=== PATIENT | female | born 1965 | race Asian ===

== ENCOUNTER 2016-11-18 10:22 | Day surgery (SDC) | payer BC ==
[2016-11-18] VITALS (25 sets, daily range): BP systolic 109–143; BP diastolic 50–91; PULSE 61–110; RESP 11–32; Ht 170.2 cm; Wt 74.9 kg
[~2016-11-18] VITALS: Ht 170.2 cm; Wt 74.9 kg
[~2016-11-18 10:22] MED LIST: CEFAZOLIN 1 GM INJ ONE
[2016-11-18 11:34] LABS: ADD SCAN DIFF NO
[2016-11-18 11:58] LABS: ALBUMIN 4.5 g/dl (3.3-4.9)
[2016-11-18] MEDS ORDERED: HYDROmorphONE (0.2 MG/ML) 10ML SYG IV PRN ×3 (12:00)
[2016-11-18] MEDS ORDERED: ROCURONIUM 50 MG INJ ONE (12:00)
[2016-11-18] MEDS ORDERED: EPHEDrine SULFATE 50 MG/5 ML SYG IV PRN (12:00)
[2016-11-18] MEDS ORDERED: LIDOCAINE 2% (SDV) 5 ML INJ ONE (12:00)
[2016-11-18] MEDS ORDERED: LABETALOL HCL 20MG INJ IV PRN (12:00)
[2016-11-18] MEDS ORDERED: MIDAZOLAM 1 MG/ML 2 ML INJ IV PRN (12:00)
[2016-11-18] MEDS ORDERED: PROPOFOL 20 ML ONE (12:00)
[2016-11-18] MEDS ORDERED: FENTAnyl 50 MCG/ML VIAL ONE (12:00)
[2016-11-18] MEDS ORDERED: ATROPINE 1 MG/10 ML SYRINGE IV PRN (12:00)
[2016-11-18] MEDS ORDERED: hydrALAzine 20 MG INJ IV PRN (12:00)
[2016-11-18] MEDS ORDERED: MEPERIDINE 25 MG INJ IV PRN (12:00)
[2016-11-18] MEDS ORDERED: FENTAnyl 50 MCG/ML VIAL IV PRN ×2 (12:00)
[2016-11-18] MEDS ORDERED: NEOSTIGMINE 3 MG/3 ML SYRINGE ONE (12:00)
[2016-11-18] MEDS ORDERED: DIPHENHYDRAMINE 50 MG INJ IV PRN (12:00)
[2016-11-18] MEDS ORDERED: morphine (1 MG/ML) 10ML SYRINGE IV PRN ×3 (12:00)
[2016-11-18] MEDS ORDERED: OXYCODONE/ACETAMINOPHEN (5/325) TAB PO PRN ×2 (12:00)
[2016-11-18] MEDS ORDERED: GLYCOPYRROLATE 0.4 MG INJ ONE (12:00)
[2016-11-18] MEDS ORDERED: ONDANSETRON 4 MG INJ IV PRN ×2 (12:00→13:30)
[2016-11-18 12:01] LABS: ALBUMIN/GLOBULIN RATIO 1.18; BILIRUBIN,INDIRECT 0.6 mg/dl (0-1.1); BILIRUBIN,TOTAL 0.6 mg/dl (0.2-1.3); TOTAL PROTEIN 8.3 g/dl (6.1-8.1)
[2016-11-18] MEDS ORDERED: MIDAZOLAM 1 MG/ML 2 ML INJ ONE (12:01)
[2016-11-18] MEDS ORDERED: DEXAMETHASONE 4 MG/ML 1 ML INJ ONE (12:01)
[2016-11-18] MEDS ORDERED: ONDANSETRON 4 MG INJ ONE (12:01)
[2016-11-18 12:09] LABS: INR 0.94; PROTIME 12.6 Sec (12.2-14.2)
--- NOTE | 2016-11-18 12:09 | RADRPT ---
PROCEDURE: XR Chest. CLINICAL INDICATION: Preoperative, breast cancer TECHNIQUE: Single frontal view of the chest was obtained COMPARISON: None FINDINGS: The heart and mediastinum are within normal limits. The lungs are clear. There is no pleural effusion or pneumothorax. RPTAT: AA IMPRESSION: No acute disease. .Ludwig Kirkpatrick MD, MD Date Time Electronically viewed and signed by .Ludwig Kirkpatrick MD, on 11/18/2016 12:09 .S/
[2016-11-18 12:18] LABS: CALCIUM 9.4 mg/dl (8.4-10.2); CREATININE 0.6 mg/dl (0.44-1.00); POTASSIUM 4.2 mmol/L (3.5-5.1)
[2016-11-18 13:11] LABS: BASOPHILS % 0.9 % (0.0-2.0); EOSINOPHILS % 1.1 % (0.0-7.0); HEMATOCRIT 40.3 % (37.0-47.0); HEMOGLOBIN 12.5 g/dl (12.0-16.0); LYMPHOCYTES # 1.3 10^3/ul (0.8-2.9); LYMPHOCYTES % 37.4 % (15.0-51.0); MEAN CORPUSCULAR VOLUME 64.6 fl (82.0-101.0); MEAN PLATELET VOLUME 10.2 fl (7.4-10.4); MONOCYTE # 0.3 10^3/ul (0.3-0.9); MONOCYTES % 9.2 % (0.0-11.0); NEUTROPHIL # 1.8 10^3/ul (1.6-7.5); NEUTROPHILS % 51.4 % (39.0-77.0); PLATELET COUNT 253 10^3/UL (140-415); RED BLOOD COUNT 6.24 10^6/ul (4.20-5.40); RED CELL DISTRIBUTION WIDTH 16.7 % (11.5-14.5); WHITE BLOOD COUNT 3.5 10^3/ul (4.8-10.8)
[2016-11-18] MEDS ORDERED: ISOSULFAN BLUE 1% 5 ML INJ SC ONE (13:21)
[2016-11-18] MEDS ORDERED: morphine 2 MG INJ IV PRN (13:30)
[2016-11-18] MEDS ORDERED: ACETAMINOPHEN 1000MG/100ML IV 100 ML IVPB PRN (13:30)
[2016-11-18] MEDS ORDERED: EPHEDrine SULFATE 50 MG/5 ML SYG ONE (13:48)
[2016-11-18] MEDS ORDERED: CEFAZOLIN 2 GM/50 ML (PMX) 50 ML IVPB SCH (14:00)
[2016-11-18] MEDS ORDERED: SOD CHLORIDE 0.9% 1,000 ML IV SCH (14:00)
--- NOTE | 2016-11-18 15:24 | OPR ---
DATE OF OPERATION: 11/18/2016 PREOPERATIVE DIAGNOSIS: Invasive cancer, left breast. POSTOPERATIVE DIAGNOSIS: Invasive cancer, left breast. PROCEDURE PERFORMED: Left partial mastectomy and axillary dissection utilizing sentinel lymph node technique. SURGEON: Scar Lopez MD APPAREL RENTAL CLERK: Gregory Ledezma MD ANESTHESIA: General. ANESTHESIOLOGIST: Temo Lopez MD INDICATIONS FOR PROCEDURE: The patient is a 51-year-old female who presented with a large mass in h er left breast. Workup including biopsy revealed approximately a 4 cm moderately-differentiated victor manuel or. She underwent testing, she was found to be triple negative, and discussing the case with the [facility] medical oncologist, Dr. Giancarlo Bacon, decision was made, recommend that the patient proc eed directly with surgery. The patient requested attempt at breast conservation understanding that she may need a completion mastectomy. She consented and was scheduled for surgery. DESCRIPTION OF PROCEDURE: The patient was brought to the operating theater, placed under general en dotracheal tube anesthesia. The left breast and axillary region was prepped and draped in the usual sterile fashion. Approximately 4 mL of 1% Lymphazurin blue dye was then injected peritumorally and the breast was gently massaged for approximately 12 minutes. At this point, a 3 to 4 cm incision w as made in the left axillary hairline. Subcutaneous tissue was dissected with cautery down through the clavipectoral fascia. A dye-stained lymphatic was identified and traced to an obvious sentinel node, which was enlarged. There were some additional enlarged nodes here. Based on the size of the primary tumor and the findings in the axilla, decision was made to proceed with axillary dissection . With blunt dissection along the chest wall, the long thoracic nerve was identified and kept out o f harm's way. More superiorly, the axillary vein and thoracodorsal neurovascular bundles were ident ified and kept out of harm's way. Significant level I and some level II lymph nodes were then resec stephani using the LigaSure device. Specimen was removed. Intraoperative analysis of the sentinel node was performed by attending pathologist, Dr. Gunter, and it was negative on cytology for evidence o f metastasis. Therefore, Dr. Lopez made the decision not to take any additional nodes. The sentine l node and the resected axillary nodes were sent for permanent pathologic analysis. The wound was i rrigated. Minimal bleeding was controlled with cautery and a #10 flat Ildefonso-Cueto drain was then brought through the left mid axillary line, cut to size and laid within the axilla. It was secured in place with a 2-0 nylon suture in a standard fashion. The skin was then reapproximated with 4-0 V icryl suture in subcuticular fashion. Attention was then directed to performing a partial mastectomy. Palpable mass in the upper outer qu adrant of the left breast was identified. A long curvilinear incision was made directly over it wit h 15 blade scalpel. Subcutaneous tissue was then dissected with cautery. Skin edges were elevated with skin hooks and wide circumferential dissection of the tissue associated with the mass took plac e using cautery all the way down to the pectoralis major fascia, taking great care to ensure adequat e margin. Specimen was then elevated, transected, oriented, and sent for permanent pathologic lisbeth sis. The wound was irrigated. Minimal bleeding was controlled with cautery, and the skin was then reapproximated with 4-0 Vicryl suture in subcuticular fashion. Dermabond was then applied to both i ncisions. The patient tolerated the procedure well. The estimated blood loss was 30 mL. There wer e no complications. The patient was transported in stable condition to the recovery room where a ci rcumferential compression dressing was applied. Dictated By: SCAR NAIK/[place] Conf#: [id number] DID#: [id number]
[2016-11-18] MEDS: D5W-0.45 NACL + KCL 20 MEQ 1,000 ML IV SCH ×2 (17:07→23:00)
--- NOTE | 2016-11-18 17:40 | RADRPT ---
Vent Rate: 73 bpm RR Interval: 0 msec FL Interval: 138 msec QRS Duration: 84 msec QT Interval: 402 msec QTC Interval: 442 msec P-R-T [place]: 19 - 68 - 15 degrees Normal sinus rhythm Normal ECG Electronically Signed By: Keanu Colon [id number]
--- NOTE | 2016-11-18 21:46 | HP ---
DATE OF ADMISSION: 11/18/2016 CHIEF COMPLAINT AND HISTORY OF PRESENT ILLNESS: The patient is a 51-year-old female who was seen by Dr. Lopez as an outpatient. The patient was noted to have a left breast mass. Subsequently she un derwent biopsy which revealed moderately differentiated tumor which was triple negative. The patien t was seen by Dr. Bacon as an outpatient from oncology standpoint, and decision was made that t he patient proceed directly with surgery. The patient underwent left partial mastectomy and axillar y dissection. The patient did have significant postoperative pain and is being admitted for further evaluation and management. The patient denied any recent history of headache, dizziness, syncope. No history of fever or chills. No history of nausea, vomiting, diarrhea. No history of dysuria, h ematuria. No history of leg edema. No history of hypertension, diabetes or coronary artery disease . No history of CVA in the past. Rest of the review of systems unremarkable. PAST MEDICAL HISTORY: As stated above. ALLERGIES: NONE. PAST SURGICAL HISTORY: The patient is status post . SOCIAL HISTORY: No smoking, no alcohol. FAMILY HISTORY: Noncontributory. PHYSICAL EXAMINATION: GENERAL: The patient is conscious, awake, alert. VITAL SIGNS: Temperature 97.6, pulse 79, respirations 18, blood pressure 118/56, O2 saturation 100% on 2 L nasal cannula. HEENT: No eye discharge, redness. Extraocular movement intact. Oropharynx clear. NECK: Supple. No mass, no thyromegaly. CHEST: Fairly clear. CARDIOVASCULAR: S1, S2 normal. No murmur. ABDOMEN: Soft, nondistended, nontender. Bowel sounds present. EXTREMITIES: No leg edema. NEUROLOGIC: The patient is awake, alert with no gross focal deficit. Detailed neurological examina tion was deferred due to postoperative state. LABORATORY DATA: WBC 3.5, hemoglobin 12.5, platelets 253. Sodium 144, potassium 4.2, BUN 11, creat inine 0.6, glucose 105. Liver enzymes normal. IMPRESSION: Left breast invasive cancer, status post partial mastectomy and axillary dissection. PLAN: The patient admitted on medical floor. The patient will be started on clear liquid diet, whi ch will be advanced as tolerated. The patient will have IV Tylenol, Percocet and IV morphine for pa in control. Will have SCD for DVT prophylaxis and Zofran for nausea, vomiting. The patient ____ fl uids. Will continue to follow her from medical standpoint. Dictated By: CHINO BARBER/[place] Conf#: [id number] DID#: [id number]
[2016-11-19] MEDS: D5W-0.45 NACL + KCL 20 MEQ 1,000 ML IV SCH (03:22)
[2016-11-19 04:00] VITALS: BP 102/58; PULSE 62; RESP 18
[2016-11-19 05:00] VITALS: BP 102/58; RESP 18
[2016-11-19 07:00] VITALS: BP 107/63; RESP 18
[2016-11-19] MEDS ORDERED: HYDR-906 PO (11:43)
--- NOTE | 2016-11-19 12:24 | PN ---
DATE: 11/19/2016 Postop day #1 status post partial mastectomy with axillary dissection, left breast for cancer. SUBJECTIVE: Feels okay. No specific complaint. OBJECTIVE: GENERAL: Awake and oriented x3. Has tolerated a diet, has walked around. VITAL SIGNS: Temperature 98.4, heart rate 63, respirations 18, blood pressure 107/63, saturation 99 % on room air. BREASTS: Dressing is intact. Ildefonso-Cueto has drained 40 mL serosanguineous fluid in the past 24 hours. ASSESSMENT AND PLAN: Status post partial mastectomy with axillary dissection, left breast for cance r. The patient is stable. Therefore, she can go home today, to be followed by Dr. Lopez in the off ice. The patient was instructed to remove the compressive Jozef bandage around the chest wall on ay. Also was taught by nurse and by me how to take care of the Ildefonso-Cueto drain, how to empty it and how to measure it. The patient to call Dr. Lopez' office today and make an appointment for leeroy schaefer. Dictated By: BJ NASH MD PS/NTS Conf#: [id number] DID#: [id number]
--- NOTE | 2016-11-21 06:45 | DS ---
DATE OF ADMISSION: 11/18/2016 DATE OF DISCHARGE: 11/19/2016 FINAL DIAGNOSES: Invasive cancer of the left breast status post partial mastectomy and axillary dis section. HOSPITAL COURSE: The patient is a 51-year-old female who was noted to have a left breast mass. Sub sequent biopsy revealed moderately differentiated tumor. The patient was also seen by Dr. Josh bass as an outpatient in oncology consultation, and decision was made to proceed directly to surgery, a nd the patient was brought to the hospital and underwent left partial mastectomy with axillary disse ction. The patient experienced significant postoperative pain and was admitted for further evaluati on and management. The patient was given IV Tylenol and morphine for pain and Zofran p.r.n. for jake sea. The patient was given intraoperative antibiotics and IV fluids. The patient's condition impro wing, and the patient was discharged home. CONDITION ON DISCHARGE: Hemodynamically stable. ACTIVITY: As patient tolerates. DIET: Regular diet. DISCHARGE MEDICATIONS: The patient was given a prescription for Viburnum p.r.n. for pain. FOLLOWUP: The patient is instructed to follow up with Dr. Lopez in postoperative appointment next w [place]. Interdisciplinary plan of care was established for this patient. Plan of care was discussed with Dr Liv Coulter. Dictated By: THANH PEREZ FINAL RAIL CUTTER for CHINO COULTER MD SR/NTS Conf#: [id number] DID#: [id number]
== END 2016-11-19 12:58 | disposition home or self-care (01) ==
LOC: SDS 10:22 → MS1 16:45 → SDS 11-19 12:58
PROVIDERS: ATTEND Surgery Surgical Oncology
DX: C50.912 Malignant neoplasm of unspecified site of left female breast (principal); N60.21 Fibroadenosis of right breast
CPT/HCPCS: 19301; 38500; 38792; 71010; 80053; 85025; 85610; 85730; 93005; J0131; J0690; J1100; J1170; J2250; J2405; J2710; J3010; J3480; Q9968

== ENCOUNTER 2017-01-19 07:31 | Day surgery (SDC) | payer BC ==
[~2017-01-19] VITALS: Ht 170.2 cm; Wt 78.0 kg
[2017-01-19] VITALS (16 sets, daily range): BP systolic 100–139; BP diastolic 54–68; PULSE 62–84; RESP 18–22; Ht 170.2 cm; Wt 78.0 kg
[~2017-01-19 07:31] MED LIST changes: -CEFAZOLIN 1 GM INJ ONE; +HYDR-906 PO
[2017-01-19] MEDS ORDERED: CEFAZOLIN 1 GM/50 ML (PMX) 50 ML IVPB ONE ×2 (08:30→18:03)
[2017-01-19] MEDS ORDERED: POLYMYXIN/BACITRACIN 1L IRRIG IRR ONE (08:30)
[2017-01-19] MEDS ORDERED: SOD CHLORIDE 0.9% 1,000 ML IV SCH (08:30)
[2017-01-19] MEDS ORDERED: CHOL100062 PO (08:36)
[2017-01-19] MEDS ORDERED: MULT-762 PO (08:36)
[2017-01-19] MEDS ORDERED: HYDROCODONE/APAP (5/325) TAB PO PRN (11:30)
--- NOTE | 2017-01-19 12:20 | RADRPT ---
PROCEDURE: Ultrasound guidance for placement of needle in right internal jugular vein. CLINICAL INDICATION: Venous access. TECHNIQUE: Prior to the procedure, informed consent was obtained. Risks including bleeding, infection, and pneu mothorax were explained to the patient. The patient understood and was willing to proceed. A procedu ral pause was performed. The patient's name, date of , and procedure to be performed were verif ied. The central line was inserted with all elements of maximal sterile barrier technique. All of th e following were used: head covering, facial mask, sterile gown, sterile gloves, a large sterile she et, hand hygiene, and 2% chlorhexidine for cutaneous antisepsis. The right neck and anterior/super ior chest wall was prepped and draped in usual sterile fashion. Limited sonography of the right neck was then performed. Noted is a patent right internal jugular ve in. Ultrasound images were recorded and stored in the patient's medical record. Following the local injection of Xylocaine, the right internal jugular vein was punctured under sono graphic guidance with a 20-gauge needle through which a 0.018 inch floppy tip guidewire was advanced into the superior vena cava. The patient tolerated the procedure well. The remainder of the proce dure was performed and dictated under separate cover. COMPARISON: None. FINDINGS: The ultrasound images demonstrate a patent right internal jugular vein. The subsequent images demon strate the needle entering the right internal jugular vein. IMPRESSION: 1. Ultrasound guidance for a needle placement in right internal jugular vein. RPTAT: QQ .Doug Rogers MD, Date Time Electronically viewed and signed by .Doug Rogers MD, on 01/19/2017 12:19 .R/
--- NOTE | 2017-01-19 12:20 | RADRPT ---
PROCEDURE: FLUOROSCOPIC AND ULTRASONOGRAPHIC-GUIDED PLACEMENT OF RIGHT CHEST PORT. CLINICAL INDICATION: History of left breast cancer. Venous access for chemotherapy. TECHNIQUE: INTRAPROCEDURE MEDICATIONS: PB antibiotic solution 40 cc applied topically. 1 gram Ancef intravenous ly, intra-op. IV Versed and Fentanyl per protocol. Informed consent was obtained. The procedure, risks, benefits, complications and alternatives were explained to the patient. Risks including bleeding, infection, and pneumothorax were explained. The patient understood and was willing to proceed. A procedural pause was performed. The patient's name , date of , and procedure to be performed were verified. The central line was inserted with al l elements of maximal sterile barrier technique. All of the following were used: head covering, faci al mask, sterile gown, sterile gloves, a large sterile sheet, hand hygiene, and 2% chlorhexidine fo r cutaneous antisepsis. The right neck and anterior/superior chest wall were prepped and draped in usual sterile fashion. Limited sonography of the right neck was then performed. Noted is a patent right internal jugular ve in. Following the local injection of 1% lidocaine, the right internal jugular vein was punctured under s onographic guidance with a 20-gauge needle through which a 0.018 inch floppy tip guidewire was advan amilcar into the superior vena cava with fluoroscopic guidance. The tract was dilated to 5 Monegasque and the wire was then replaced with a 0.035 in Amplatz guidewire. Serial dilatation was then performed and a 7 Monegasque peel away sheath was introduced. A site just inferior to the clavicle in the superior anterior right chest wall was localized. One pe rcent lidocaine was used as local anesthesia. A transverse 2.5 cm incision was made utilizing a 15 b lade scalpel. Utilizing blunt dissection a subcutaneous pocket was created inferior to the incision. The cavity was flushed with approximately 40 cc of PB antibiotic solution. The catheter was tunneled underneath the skin from the newly created pocket to the puncture site in the neck. The central line catheter was pulled through the tract. The catheter was then advanced thr ough the sheath until the tip was positioned in the right atrium. The peel-away sheath was removed. The catheter was flushed and clamped. The 6.6 Monegasque catheter was then connected to the Angiodynamics power port. The port was then placed into the pocket. Prior to closing the instrument and sponge count was verified and was correct. The subcutaneous tissue was closed with 3-0 Vicryl interrupted suture. The skin at the site of the pock et and in the neck was closed with 4-0 Vicryl suture in a running subcuticular technique. The port w as flushed with 1500 units of heparin in 1.5 cc utilizing a Garcia needle. The needle was removed. A dressing was applied. The patient tolerated procedure well. COMPARISON: None. FINDINGS: Ultrasound images were recorded and stored in the patient's medical record. Final radiographic images demonstrate the tip of the catheter in the upper right atrium. A total of 0.4 minutes of fluoroscopy time was used. Four images of the chest were obtained with the image in tensifier. The ultrasound images demonstrate the needle entering the internal jugular vein. IMPRESSION: 1. Successful ultrasonographic and fluoroscopic guided placement of right chest power port. RPTAT: QQ .Doug Rogers MD, MD Date Time Electronically viewed and signed by .Doug Rogers MD, on 01/19/2017 12:20 .R/
[2017-01-19] MEDS ORDERED: MIDAZOLAM 1 MG/ML 2 ML INJ ONE ×2 (18:03)
[2017-01-19] MEDS ORDERED: FENTAnyl 50 MCG/ML VIAL ONE ×2 (18:03)
[2017-01-19] MEDS ORDERED: ONDANSETRON 4 MG INJ ONE (18:03)
[2017-01-19] MEDS ORDERED: LIDOCAINE 2%/EPI 30 ML INJ ONE (18:03)
[2017-01-19] MEDS ORDERED: HEPARIN 1000 UNITS/ML 10 ML INJ ONE (18:03)
--- NOTE | 2017-01-20 08:00 | RADRPT ---
Echocardiogram Report Patient Name: MILAGRO KWKO Gender: Female Date: 1965 Study Date: 19-Jan-2017 Apprentice Architect: Davida JAYME Location: EKG Ref. Physician: KENDAL AARON Quality: Adequate Procedures: Transthoracic echocardiogram with complete 2D, M-Mode, and doppler examination. Indications: Breast CA. 2D/M Mode Doppler Measurement Value Normal Ranges Measurement Value Normal Ranges LVIDd 2D 4.6 3.5 - 5.6 cm AV Peak Mic 1.6 m/sec LVIDs 2D 3.3 2.1 - 4.1 cm AV Peak PG 10.0 mmHg FS 2D 26.6 % LVOT Peak Mic 0.9 m/sec LVPWd 2D 1.1 0.6 - 1.1 cm LVOT Peak PG 4.0 mmHg IVSd 2D 1.1 0.6 - 1.1 cm MV E Peak Mic 1.0 m/sec IVS/LVPW 2D 1.0 MV A Peak Mic 0.6 m/sec AoR Diam 2D 2.8 2.0 - 3.7 cm MV E/A 1.6 LA/Ao 2D 1 0 - 1 MV Decel Time 183 msec EDV 2D 94.2 cm3 MV E/A 1.6 ESV 2D 37.3 cm3 LA Dimen 2D 3.4 2.3 - 4.0 cm Findings Left Ventricle: Normal left ventricular systolic function. Normal left ventricular cavity size. Normal left ventricular wall thickness. Ejection fraction is visually estimated at 55 %. Abnormal Diastolic Function. Right Ventricle: Normal right ventricular size. Normal right ventricular systolic function. Left Atrium: The left atrium is normal in size. Right Atrium: The right atrium is normal in size. Mitral Valve: Mitral valve leaflets appear mildly thickened. Mild mitral annular calcification. Trace mitral regurgitation. Aortic Valve: No significant aortic stenosis or insufficiency. Aortic cusps appear mildly calcified. Tricuspid Valve: Normal appearance of the tricuspid valve. Unable to obtain RVSP due to minimal presence of tricuspid regurgitation. There is trace tricuspid regurgitation. Pulmonic Valve: Pulmonic valve not well visualized. There is trace pulmonic regurgitation. Pericardium: Normal pericardium with no significant pericardial effusion. Aorta: Normal aortic root. IVC: Normal size and normal respiratory collapse consistent with normal right atrial pressure. Conclusions 1.Normal left ventricular systolic function. Normal left ventricular cavity size. Normal left ventricular wall thickness. Ejection fraction is visually estimated at 55 %. Abnormal Diastolic Function. 2.Mitral valve leaflets appear mildly thickened. Mild mitral annular calcification. Trace mitral regurgitation. 3.No significant aortic stenosis or insufficiency. Aortic cusps appear mildly calcified. 4.Normal appearance of the tricuspid valve. Unable to obtain RVSP due to minimal presence of tricuspid regurgitation. There is trace tricuspid regurgitation. Electronically Signed By: Kendal Aaron 20-Jan-2017 07:59:41 -0700 Patient Name: MILAGRO KWOK Study Date: 19-Jan-2017 [id number]
== END 2017-01-19 17:46 | disposition home or self-care (01) ==
LOC: SDS 07:31
PROVIDERS: ATTEND Internal Medicine Hematology & Oncology
DX: C50.912 Malignant neoplasm of unspecified site of left female breast (principal)
CPT/HCPCS: 36561; 76942; 93306; C1788; J0690; J1644; J2250; J2405; J3010

== ENCOUNTER 2017-12-23 07:09 | Day surgery (SDC) | END 2017-12-23 13:30 | disposition home or self-care (01) ==